=== PATIENT | female | born 1980 | race Caucasian/White ===

== ENCOUNTER → 2018-06-28 | Outpatient (CLI) | payer OTHER ==
--- NOTE | ~2018-06-28 | 2DMMODE ---
[facility] [address] [place] [address] 2 D/M-MODE ECHOCARDIOGRAM Name: PATRICIA RIGGS Room #: [facility]#: [id number] Admission: 06/28/18 Attend Phys: Lucian Kennedy Discharge: Date of : 78 Date of Service: 06/28/18 1700 Report #: [id number] THIS REPORT FOR: //name// APPROVED REPORT Study performed: 06/28/2018 15:17:15 EXAM: Comprehensive 2D, Doppler, and color-flow Echocardiogram Patient Location: Out-Patient Status: routine BSA: 1.99 HR: 77 bpm BP: 110/68 mmHg Rhythm: NSR Other Information Study Quality: Good Indications Chest Pain 2D Dimensions RVDd: 33.97 mm IVSd: 10.79 (7-11mm) LVOT Diam: 21.24 (18-24mm) LVDd: 49.65 mm PWd: 10.26 (7-11mm) LVDs: 32.07 (25-40mm) Aortic Root: 34.92 mm Volumes Left Atrial Volume (Systole) Single Plane 4CH: 36.47 mL Single Plane 2CH: 32.15 mL LA ESV Index: 19.00 mL/m2 Aortic Valve AoV Peak Greg.: 1.55 m/s AO Peak Gr.: 9.63 mmHg LVOT Max P.99 mmHg LVOT Max V: 1.12 m/s FIDEL Vmax: 2.55 cm2 Mitral Valve E/A Ratio: 1.5 MV Decel. Time: 195.45 ms MV E Max Greg.: 0.87 m/s [facility] [address] [place] [address] 2 D/M-MODE ECHOCARDIOGRAM Name: RIGGSPATRICIA Red Room #: [facility]#: [id number] Admission: 06/28/18 Attend Phys: Lucian Kennedy Discharge: Date of : 78 Date of Service: 06/28/18 1700 Report #: [id number] MV A Greg.: 0.58 m/s MV PHT: 56.68 ms IVRT: 89.97 ms Pulmonary Valve PV Peak Greg.: 0.90 m/s PV Peak Gr.: 3.21 mmHg Pulmonary Vein P Vein S: 0.63 m/s P Vein A: 0.47 m/s P Vein D: 0.43 m/s P Vein A Dur.: 110.7 msec P Vein S/D Ratio: 1.47 Tricuspid Valve TR Peak Greg.: 2.29 m/s RAP Estimate: 5.00 mmHg TR Peak Gr.: 20.93 mmHg PA Pressure: 26.00 mmHg Left Ventricle The left ventricle is normal size. There is normal LV segmental wall motion. There is normal left ventricular wall thickness. Left ventricular systolic function is normal. LVEF is 55-60%. The left ventricular diastolic function is normal. Right Ventricle The right ventricle is normal size. The right ventricular systolic function is normal. Atria The left atrium size is normal. The right atrium size is normal. Aortic Valve The aortic valve is normal in structure; not well visualized. Trace to mild aortic regurgitation. There is no aortic valvular stenosis. Mitral Valve The mitral valve is normal in structure. Trace mitral regurgitation. No evidence of mitral valve stenosis. Tricuspid Valve The tricuspid valve is normal in structure. Mild tricuspid regurgitation. Estimated PAP is 25-30mmHg. Pulmonic Valve Pulmonic valve is not well visualized. Trace pulmonic [facility] [address] [place] [address] 2 D/M-MODE ECHOCARDIOGRAM Name: PATRICIA RIGGS Room #: [facility]#: [id number] Admission: 06/28/18 Attend Phys: Lucian Kennedy Discharge: Date of : 78 Date of Service: 06/28/18 1700 Report #: [id number] regurgitation. Great Vessels The aortic root is normal in size. Ascending aorta is not well visualized. IVC is normal in size and collapses >50% with inspiration. Pericardium There is no pericardial effusion. <Conclusion> Left ventricular systolic function is normal. There is normal LV segmental wall motion. LVEF is 55-60%. Normal diastolic function The aortic valve is normal in structure. Trace to mild aortic regurgitation, no stenosis The mitral valve is normal in structure. Trace mitral regurgitation. Mild tricuspid regurgitation. Estimated pulmonary artery pressure of 25-30mmHg. There is no pericardial effusion. <ELECTRONICALLY SIGNED> By: Andrew Garcia MD, FACC 06/28/181699 99 99 Andrew Garcia MD, FACC /INF
== END ==
LOC: CV 09:20
DX: I34.0 Nonrheumatic mitral (valve) insufficiency (principal)